=== PATIENT | male | born 1985 | race Caucasian/White ===

== ENCOUNTER 2020-10-29 12:13 | Emergency (ER) | payer OTHER, SELFPAY ==
[2020-10-29] VITALS (16 sets, daily range): BP systolic 142–161; BP diastolic 83–89; PULSE 70–96; RESP 9–18; TEMP 36.4; O2SAT 96–100
--- NOTE | ~2020-10-29 | XR_ITS ---
EXAMINATION: XR chest 2V DATE: 10/29/2020 13:50 INDICATION: Hypertension and sweating TECHNIQUE: PA and lateral views of the chest were obtained. COMPARISON: None available FINDINGS: The lungs are free of acute opacities. There is no pleural effusion or pneumothorax. The ca rdiomediastinal silhouette is normal. The visualized bones and soft tissues are unremarkable. IMPRESSION: 1. No acute cardiopulmonary abnormality. Reviewed, dictated and finalized at location A.
--- NOTE | 2020-10-29 12:28 | ECG_ITS ---
Measurements Intervals Leary Rate: 90 P: 41 CT: 144 QRS: 29 QRSD: 106 T: 18 QT: 345 QTc: 423 Interpretive Statements SINUS RHYTHM WITH MARKED SINUS ARRHYTHMIA POSSIBLE LEFT ATRIAL ENLARGEMENT INCOMPLETE RIGHT BUNDLE BRANCH BLOCK BORDERLINE ST-T WAVE ABNORMALITY- ANT/INF LEADS BORDERLINE ECG Electronically Signed On 10-29-2020 15:19:49 CDT by Donte Foy D.O.
--- NOTE | 2020-10-29 14:29 | ED.ARRPALP ---
HPI - Arrhythmia/Palpitations General Chief Complaint: Recheck/Abnormal Lab/Rx Stated Complaint: High Blood Pressure Time Seen by Provider: 10/29/20 13:41 Source: patient Mode of arrival: ambulatory Limitations: no limitations History of Present Illness HPI narrative: 34-year-old male Here because of palpitations and high blood pressure He notes that about 3 times in the last few months but twice in the last 3days he has awakened at night with palpitations and feeling like his heart is racing reporting rates into the 130 range Also has been sleeping poorly He reported his blood pressure was 180/100 when he checked it at home earlier today which is unusual has been well controlled on 5 mg a day of lisinopril for 5 or 6 years Just relocated from [facility] and has not fully establish primary care in this area yet He does not have any chest pain or shortness of breath although he has been diaphoretic during 1 of these episodes For about the last 6 months he is also noticed frequent bouts of loose stools Related Data Home Medications Medication Instructions Recorded Confirmed elderberry fruit [Elderberry] mg PO 10/29/20 lisinopril 5 mg PO DAILY 10/29/20 multivit with min-folic acid tablet PO 10/29/20 [Adult One Daily Multivitamin] Allergies Allergy/AdvReac Type Severity Reaction Status Date / Time No Known Allergies Allergy Verified 10/29/20 13:45 Review of Systems Review of Systems: All systems reviewed & are unremarkable except as noted in HPI and below Constitutional: Constitutional: Reports no additional constitutional complaints, Denies chills, Denies fever(s) and Denies headache(s) Comments: Diaphoresis Eyes: Eyes: Reports no additional eye complaints and Denies change in vision ENT: Denies headache(s) and Reports sore throat Cardiovascular: Cardiovascular: Denies chest pain, Reports rapid heart rate and Denies dyspnea Respiratory: Respiratory: Denies cough and Denies dyspnea Gastrointestinal: Gastrointestinal: Denies abdominal pain, Denies diarrhea and Denies vomiting Genitourinary: Genitourinary: Denies dysuria and Denies urinary frequency Musculoskeletal: Musculoskeletal: Denies deformity, Denies arthralgias, Denies joint swelling and Denies numbness Integumentary/Breasts: Skin/Breast: Denies rash and Denies wounds Neurologic: Denies headache(s), Denies focal weakness and Denies numbness Psychiatric: Comments: Insomnia Endocrine: Endocrine: Reports no additional endocrine complaints, Denies polydipsia and Denies polyuria Exam Const: General: cooperative, healthy appearing, no acute distress and alert Orientation/consciousness: patient oriented x3 (alert) HENMT: Head: normal to inspection, normocephalic and atraumatic Ears: external ears normal General nose exam: no epistaxis Eyes: Conjunctivae: conjunctivae normal EOM: EOMs intact bilaterally Neck: Neck: normal visual inspection, supple and no JVD Other: Normal thyroid Resp: Effort & Inspection: normal respiratory effort and not labored Auscultation: clear to auscultation bilaterally and other (BS =) Cardio: Rate: regular rate Rhythm: regular rhythm Heart sounds: no murmurs GI: GI Palp: Yes Soft to palpation and No Tenderness to palpation present (GI) Other: Soft, nontender Skin: General skin exam: normal color and no rashes or lesions noted Neuro: General: patient oriented x3 (alert) and moves all extremities Speech: normal speech Extrem: General: normal to inspection and no pedal edema Psych: Affect: normal affect Course Vital Signs Vital signs: Vital Signs Temperature 36.4 C 10/29/20 12:23 Pulse Rate 96 10/29/20 12:23 Respiratory Rate 18 10/29/20 12:23 Blood Pressure 157/89 H 10/29/20 12:23 Pulse Oximetry 96 10/29/20 12:23 Temperature 36.4 C 10/29/20 12:23 Pulse Rate 75 10/29/20 16:15 Respiratory Rate 15 10/29/20 16:15 Blood Pressure 161/83 H 10/29/20 13:31 P
[2020-10-29 15:01] LABS: Anion Gap 12 mmol/L (8-16); Blood Urea Nitrogen 11 mg/dL (9-20); Calcium 9.5 mg/dL (8.4-10.2); Carbon Dioxide 25 mmol/L (22-30); Chloride 104 mmol/L (98-107); Estimated CRCL calculation 131 ml/min; Estimated Glomerular Filt Rate > 60; Glucose 129 mg/dL (65-110); Potassium 3.8 mmol/L (3.4-5.0); Sodium 141 mmol/L (137-145); Troponin I < 0.012 ng/mL (0.000-0.034)
[2020-10-29 15:15] LABS: Basophils Absolute Auto 0.1 K/mm3 (0.0-0.1); Basophils Percent Auto 0.5 % (0.2-1.2); Hematocrit 47.3 % (42.0-52.0); Hemoglobin 16.4 g/dL (14.0-18.0); Immature Granulocyte Absolute 0.05 K/mm3 (0.00-0.031); Immature Granulocyte Percent A 0.4 % (0-0.5); Lymphocytes Percent Auto 8.7 % (18.3-44.2); Mean Corpuscular HGB Conc 34.7 g/dl (32-36); Mean Corpuscular Hemoglobin 29.7 pg (26-34); Mean Corpuscular Volume 85.5 fl (80-100); Mean Platelet Volume 9.4 fl (7.4-10.4); Monocytes Absolute Auto 0.7 K/mm3 (0.1-0.6); Monocytes Percent Auto 5.2 % (2.6-8.5); Neutrophils Absolute Auto 10.8 K/mm3 (1.3-6.7); Neutrophils Percent Auto 85.2 % (45.5-73.1); Platelet Count Result 324 k/mm3 (150-375); Red Blood Count 5.53 M/mm3 (4.6-6.20); Red Cell Distribution Width 13.1 % (11.5-14.5); White Blood Count 12.6 K/mm3 (4.5-10.0)
--- NOTE | 2020-10-29 15:23 | PC.NURSE ---
Per Marleny in cardiology, have holter monitor for pt., wanted ETA for discharge, informed 30-45 minutes.
[2020-10-29 16:51] LABS: NT Pro B Type Natriuretic Pept 150 pg/mL (5-100)
[2020-10-29 17:46] LABS: Troponin I < 0.012 ng/mL (0.000-0.034)
[2020-10-29 18:28] LABS: INR 0.9; Prothrombin Time 12.5 Seconds (11.1-14.7)
[2020-10-29 18:29] LABS: Partial Thromboplastin Time 27.8 SECONDS (22.3-36.8)
--- NOTE | 2020-11-06 10:27 | WPDHOLTEREM ---
Holter/Event Monitor Holter/Event Monitor Date of procedure: 11/06/20 Holter/Event Procedure: 48 Hr Holter Monitor Diagnosis: Palpitations Indications: Palpitations Image/Tracing Quality: Good Finding: Patient was monitored for 48 hours. Average heart rate was 71 beats per minute with minimum heart rate 39 beats per minute and maximum heart rate 121 beats per minute. No ventricular ectopy or ventricular tachycardia, atrial fibrillation seen. There with a total of 79 supraventricular ectopic beats. No atrial tachycardia seen. Longest pause was 2 seconds at 3am. Patient submitted diary on 3 different occasions feeling heart palpitations and all corresponded to normal sinus rhythm. Conclusion: Unremarkable 48 hour Holter monitor. Symptoms corresponded to normal sinus rhythm.
== END 2020-10-29 17:35 | disposition home or self-care (01) ==
PROVIDERS: Emergency Provider Emergency Medicine
DX: R00.2 Palpitations (principal); I10 Essential (primary) hypertension; I45.10 Unspecified right bundle-branch block; R94.31 Abnormal electrocardiogram [ECG] [EKG]
CPT/HCPCS: 36415; 71046; 80048; 83880; 84439; 84443; 84484; 85025; 85610; 85730; 93005; 93225; 93226; 99284

== ENCOUNTER 2021-12-14 12:23 | Emergency (ER) | payer OTHER, SELFPAY ==
[2021-12-14 12:28] VITALS: BP 167/93; PULSE 104; RESP 18; TEMP 36.4; O2SAT 98
--- NOTE | 2021-12-14 12:43 | ED.URI ---
HPI - URI/Sore Throat General Chief Complaint: Upper Respiratory Infection Stated Complaint: Cough,Wheezing Time Seen by Provider: 12/14/21 12:35 Source: patient Mode of arrival: ambulatory Limitations: no limitations History of Present Illness HPI Narrative: Daniel is a 36-year-old male patient presenting to clinic today with complaints of coughing and wheezing x2 weeks. He reports he is having a productive cough with green and yellow phlegm. He denies any fevers. Denies any abnormal shortness of breath. States that his son was positive for RSV 2 weeks ago. No history of asthma or COPD. MD elicited complaint: cough, nasal congestion and other (Chest congestion) Related Data Home Medications Medication Instructions Recorded Confirmed lisinopril 5 mg tablet 5 mg PO DAILY 10/29/20 12/14/21 citalopram 10 mg tablet 10 mg PO DAILY 12/14/21 12/14/21 Allergies Allergy/AdvReac Type Severity Reaction Status Date / Time No Known Allergies Allergy Verified 12/14/21 12:27 Review of Systems Review of Systems: Pertinent positives per HPI. Patient denies any fever, chills, rash, headache, visual changes, dizziness, cough, shortness of breath, chest pain, palpitations, nausea, vomiting, diarrhea, constipation, abdominal pain, or any urinary issues. PMFSH Comments At the time of my signature, I reviewed and agree with the nursing past medical, surgical, social, and family history. There is no relevant family history pertinent to the patient complaint. Exam Narrative: General: Well-developed, well nourished, in no apparent distress Head: Normocephalic, atraumatic Eyes: Pupils equally round and reactive to light bilaterally, EOM intact, sclera and conjunctive clear, no discharge, lids normal Ears: TMs intact and clear, ear canals clear, no drainage, grossly hearing normal. Nose: Nares patent, no discharge, no inflammation, no sinus tenderness. Mouth: Oral pharynx without lesions or masses, good dentition, MMM. Neck: Supple, trachea midline, no enlargement of anterior or posterior cervical nodes, no thyroid masses or goiter palpable. Cardio: Regular rate and rhythm, s1 and s2 normal, no murmur appreciated. Resp: Inspiratory and expiratory wheezing with rhonchi,no rales or rubs Course Course Emergency Course: Portions of this record may have been created with voice recognition software. Level of Care: Express Care Visit Vital Signs Vital signs: Vital Signs Temperature 36.4 C L 12/14/21 12:28 Pulse Rate 104 H 12/14/21 12:28 Respiratory Rate 18 12/14/21 12:28 Blood Pressure 167/93 H 12/14/21 12:28 Pulse Oximetry 98 12/14/21 12:28 Oxygen Delivery Room Air 12/14/21 12:28 Temperature 36.4 C L 12/14/21 12:28 Pulse Rate 104 H 12/14/21 12:28 Respiratory Rate 18 12/14/21 12:28 Blood Pressure 167/93 H 12/14/21 12:28 Pulse Oximetry 98 12/14/21 12:28 Oxygen Delivery Room Air 12/14/21 12:28 Vital signs reviewed MDM - URI/Sore Throat MDM Narrative Medical decision making narrative: At the time of visit patient is resting comfortably on the exam table. I suspect the patient has a lower respiratory infection/bronchitis. Prescriptions for doxycycline, albuterol inhaler, and prednisone was sent to the pharmacy. Supportive measures were discussed with the patient he voiced understanding of discharge instructions and agrees to treatment plan. Differential Diagnosis Differential diagnosis: Likely upper respiratory infection, otitis media, sinusitis, viral infection, bronchitis, influenza, pharyngitis and other (covid) Discharge Plan Discharge Clinical Impression: Acute lower respiratory infection, Bronchitis Patient Disposition: Home, Self-Care Condition: Stable Instructions: Antibiotic Form, Acute Bronchitis (ED) Additional Instructions: Take prescription medications only as prescribed- prednisone, albuterol inhaler, and doxycycline as prescribed. Increase fluids and stay
== END 2021-12-14 12:47 | disposition home or self-care (01) ==
PROVIDERS: Emergency Provider Nurse Practitioner Family; PCP Internal Medicine
DX: J22 Unspecified acute lower respiratory infection (principal); J40 Bronchitis, not specified as acute or chronic; I10 Essential (primary) hypertension; F41.9 Anxiety disorder, unspecified; F32.A Depression, unspecified
CPT/HCPCS: 99213; G0463